=== PATIENT | male | born 1995 | race Caucasian/White ===

== ENCOUNTER 2018-02-12 23:09 | Inpatient (IN) | payer OTHER ==
[~2018-02-12] VITALS: Ht 185.4 cm; Wt 81.6 kg
[2018-02-12] MEDS ORDERED: OLANZAPINE 10 MG VIAL IM ONE (23:38)
[2018-02-13 00:01] LABS: APPEARANCE,URINE CLEAR (CLEAR); BILIRUBIN,URINE NEGATIVE (NEGATIVE); BLOOD, URINE TRACE Ery/uL (NEGATIVE); COLOR,URINE YELLOW (YELLOW); KETONES,URINE NEGATIVE (NEGATIVE); LEUKOCYTE ESTERASE ,URINE NEGATIVE (NEGATIVE); NITRITE, URINE NEGATIVE (NEGATIVE); PH,URINE 6.5 (5.0-8.0); PROTEIN,URINE NEGATIVE (NEGATIVE); UGLUCOSE NEGATIVE (NEGATIVE); UROBILINOGEN,URINE 0.2 EU/dL (0.2)
[2018-02-13 00:08] LABS: BACTERIA,URINE None seen /HPF (None Seen); RBC,URINE 0-2 /HPF (0-2); SQUAMOUS EPITHELIAL CELL,UR Few /HPF (None Seen); WBC,URINE 0-2 /HPF (0-3)
[2018-02-13] MEDS ORDERED: LORAZEPAM INJ 2 MG/ML VIAL ONE ×5 (00:19→20:45)
[2018-02-13] MEDS ORDERED: LORAZEPAM INJ 2 MG/ML VIAL IM ONE ×3 (00:30→07:00)
[2018-02-13] MEDS ORDERED: OLANZAPINE 10 MG VIAL IM ONE ×5 (01:30→13:00)
[2018-02-13 01:38] LABS: BASOPHILS % (AUTO) 0.2 % (0.0-2.0); HEMATOCRIT 43 % (39-51); HEMOGLOBIN 13.7 g/dL (13.5-17.5); LYMPHOCYTES # (AUTO) 0.7 /CMM (0.8-4.8); LYMPHOCYTES % (AUTO) 6.1 % (20.0-44.0); MEAN CORPUSCULAR HGB CONC 32 g/dl (31.0-36.0); MEAN CORPUSCULAR VOLUME 90 fL (80-96); MONOCYTES # (AUTO) 0.3 /CMM (0.1-1.30); MONOCYTES % (AUTO) 2.2 % (2.0-12.0); NEUTROPHILS # (AUTO) 11.1 /CMM (1.8-8.9); NEUTROPHILS % (AUTO) 91.5 % (43.0-81.0); PLATELET COUNT (AUTO) 202 /CMM (150-450); RDW COEFFICIENT OF VARIATION 13.5 (11.5-15.0); RED BLOOD CELL COUNT(AUTO) 4.74 MIL/uL (4.5-6.0); WHITE BLOOD COUNT (AUTO) 12.1 K/uL (4.3-11.0)
[2018-02-13 01:46] LABS: CALCIUM, SERUM 9.1 mg/dL (8.5-10.1); CARBON DIOXIDE 29 mmol/L (21-32); CHLORIDE 104 mmol/L (98-107); GLUCOSE 140 mg/dL (74-106); POTASSIUM 4.4 mmol/L (3.5-5.1); SODIUM SERUM 139 mmol/L (136-145); UREA NITROGEN, BLOOD 10 mg/dL (7-18)
[2018-02-13 01:52] LABS: ALANINE AMINOTRANSFERASE 47 U/L (12-78); ALBUMIN 4.7 g/dL (3.4-5.0); ALKALINE PHOSPHATASE 76 U/L (46-116); ASPARTATE AMINOTRANSFERASE 23 U/L (15-37); BILIRUBIN,DIRECT 0.2 mg/dL (0.0-0.2); BILIRUBIN,TOTAL 0.7 mg/dL (0.2-1.0); TOTAL PROTEIN, SERUM 7.7 g/dL (6.4-8.2)
[2018-02-13 01:53] LABS: ACETAMINOPHEN < 0 ug/ml (10-30); ALCOHOL, BLOOD 0 mg/dL (0-0); SALICYLATE 0.7 mg/dL (2.8-20.0)
[2018-02-13] MEDS ORDERED: KETAMINE HCL (500MG/10ML) 50 MG/ML VIAL ONE (07:52)
[2018-02-13] MEDS ORDERED: KETAMINE HCL(200MG/20ML) 10 MG/ML VIAL IM ONE (08:00)
[2018-02-13] MEDS ORDERED: ZIPRASIDONE MESYLATE 20 MG/VIAL VIAL IM ONE ×2 (13:22→13:30)
[2018-02-13] MEDS ORDERED: diphenhydrAMINE HCL 50 MG/ML VIAL ONE ×3 (13:22→20:45)
[2018-02-13] MEDS ORDERED: WATER FOR INJECTION,STERILE 10 ML ONE (13:23)
[2018-02-13] MEDS ORDERED: diphenhydrAMINE HCL 50 MG/ML VIAL IV ONE ×3 (13:30→20:30)
[2018-02-13] MEDS ORDERED: LORAZEPAM INJ 2 MG/ML VIAL IV ONE ×2 (16:00→20:30)
[2018-02-13] MEDS ORDERED: HALOPERIDOL LACTATE INJ 5 MG/ML VIAL ONE (18:30)
[2018-02-13] MEDS ORDERED: HALOPERIDOL LACTATE INJ 5 MG/ML VIAL IM ONE (18:30)
[2018-02-14] MEDS ORDERED: diphenhydrAMINE HCL 50 MG/ML VIAL ONE (00:58)
[2018-02-14] MEDS ORDERED: HALOPERIDOL LACTATE INJ 5 MG/ML VIAL ONE (00:59)
[2018-02-14] MEDS ORDERED: LORAZEPAM INJ 2 MG/ML VIAL ONE ×2 (00:59→03:20)
[2018-02-14] MEDS ORDERED: HALOPERIDOL LACTATE INJ 5 MG/ML VIAL IV ONE (01:00)
[2018-02-14] MEDS ORDERED: LORAZEPAM INJ 2 MG/ML VIAL IV ONE ×2 (01:00→03:30)
[2018-02-14] MEDS ORDERED: diphenhydrAMINE HCL 50 MG/ML VIAL IV ONE (01:00)
[2018-02-14] MEDS ORDERED: risperiDONE 1 MG TABLET ONE (07:26)
[2018-02-14] MEDS ORDERED: risperiDONE 0.25 MG TABLET PO ONE (07:30)
[2018-02-14] MEDS ORDERED: OLANZAPINE 5 MG/TAB.RAPDIS ONE (12:30)
[2018-02-14] MEDS ORDERED: ZIPRASIDONE MESYLATE 20 MG/VIAL VIAL IM ONE (12:30)
[2018-02-14] MEDS ORDERED: OLANZAPINE 5 MG/TAB.RAPDIS PO ONE (12:30)
[2018-02-14] MEDS ORDERED: OLAN5TAB3 PO (14:34)
[2018-02-14 16:00] VITALS: BP 142/92
[2018-02-14] MEDS ORDERED: OLANZAPINE 10 MG VIAL IM PRN (17:30)
[2018-02-14] MEDS: OLANZAPINE 5 MG TABLET PO SCH (17:45)
[2018-02-14 18:27] VITALS: BP 133/81
[2018-02-14] MEDS ORDERED: diphenhydrAMINE HCL 50 MG/ML VIAL IM STA (18:52)
[2018-02-14] MEDS ORDERED: LORAZEPAM INJ 2 MG/ML VIAL IM STA (18:52)
[2018-02-14] MEDS ORDERED: HALOPERIDOL LACTATE INJ 5 MG/ML VIAL IM ONE (19:00)
[2018-02-14 19:51] VITALS: BP 161/79
[2018-02-14 20:00] VITALS: BP 135/79
[2018-02-14 21:00] VITALS: BP 128/58
[2018-02-14] MEDS ORDERED: HALOPERIDOL LACTATE INJ 5 MG/ML VIAL IM PRN (21:30)
[2018-02-14 22:00] VITALS: BP 119/76
[2018-02-14] MEDS ORDERED: diphenhydrAMINE HCL 50 MG/ML VIAL IM PRN (22:00)
[2018-02-14] MEDS ORDERED: LORAZEPAM INJ 2 MG/ML VIAL IM PRN (22:00)
[2018-02-14 22:08] LABS: CREATINE KINASE, TOTAL 4010 U/L (39-308)
[2018-02-15] VITALS (20 sets, daily range): BP systolic 75–176; BP diastolic 23–151
[2018-02-15 04:47] LABS: BASOPHILS % (AUTO) 0.3 % (0.0-2.0); EOSINOPHILS % (AUTO) 0.8 % (0.0-6.0); HEMATOCRIT 46 % (39-51); HEMOGLOBIN 15.1 g/dL (13.5-17.5); LYMPHOCYTES # (AUTO) 2.5 /CMM (0.8-4.8); LYMPHOCYTES % (AUTO) 22.9 % (20.0-44.0); MEAN CORPUSCULAR HGB CONC 33 g/dl (31.0-36.0); MEAN CORPUSCULAR VOLUME 91 fL (80-96); MONOCYTES % (AUTO) 8.7 % (2.0-12.0); NEUTROPHILS # (AUTO) 7.5 /CMM (1.8-8.9); NEUTROPHILS % (AUTO) 67.3 % (43.0-81.0); PLATELET COUNT (AUTO) 203 /CMM (150-450); RDW COEFFICIENT OF VARIATION 13.4 (11.5-15.0); RED BLOOD CELL COUNT(AUTO) 5.11 MIL/uL (4.5-6.0); WHITE BLOOD COUNT (AUTO) 11.1 K/uL (4.3-11.0)
[2018-02-15 05:11] LABS: ALBUMIN 4.5 g/dL (3.4-5.0); BILIRUBIN,TOTAL 1.6 mg/dL (0.2-1.0); CALCIUM, SERUM 9.2 mg/dL (8.5-10.1); CREATININE 1.1 mg/dL (0.6-1.3); MAGNESIUM 2.1 mg/dL (1.8-2.4); PHOSPHORUS 5.1 mg/dL (2.5-4.9); POTASSIUM 3.8 mmol/L (3.5-5.1); TOTAL PROTEIN, SERUM 7.8 g/dL (6.4-8.2)
[2018-02-15] MEDS: OLANZAPINE 5 MG TABLET PO SCH ×3 (08:15→16:28)
[2018-02-15] MEDS: ACETAMINOPHEN 325 MG TABLET PO PRN (10:11)
[2018-02-15] MEDS ORDERED: IV NS 0.9% 1,000 ML BAG IV SCH (12:00)
[2018-02-15] MEDS ORDERED: IV NS 0.9% 1,000 ML IV PRN (12:30)
[2018-02-15] MEDS: LORAZEPAM 1 MG TABLET PO PRN ×2 (14:53→20:03)
[2018-02-15] MEDS ORDERED: OLANZAPINE 5 MG TABLET PO SCH (17:00)
[2018-02-16 00:45] VITALS: BP 143/107
[2018-02-16] MEDS: ACETAMINOPHEN 325 MG TABLET PO PRN ×3 (00:45→22:32)
[2018-02-16 01:00] VITALS: BP 143/103
[2018-02-16] MEDS: LORAZEPAM 1 MG TABLET PO PRN ×2 (03:20→20:36)
[2018-02-16 03:24] VITALS: BP 140/76
[2018-02-16 04:00] VITALS: BP 140/76
[2018-02-16 04:55] LABS: BASOPHILS % (AUTO) 0.3 % (0.0-2.0); HEMATOCRIT 45 % (39-51); LYMPHOCYTES # (AUTO) 2.2 /CMM (0.8-4.8); LYMPHOCYTES % (AUTO) 20.5 % (20.0-44.0); MEAN CORPUSCULAR HGB CONC 33 g/dl (31.0-36.0); MEAN CORPUSCULAR VOLUME 90 fL (80-96); MONOCYTES # (AUTO) 0.8 /CMM (0.1-1.30); MONOCYTES % (AUTO) 7.4 % (2.0-12.0); NEUTROPHILS # (AUTO) 7.6 /CMM (1.8-8.9); NEUTROPHILS % (AUTO) 70.8 % (43.0-81.0); PLATELET COUNT (AUTO) 200 /CMM (150-450); RDW COEFFICIENT OF VARIATION 13.2 (11.5-15.0); RED BLOOD CELL COUNT(AUTO) 4.99 MIL/uL (4.5-6.0); WHITE BLOOD COUNT (AUTO) 10.8 K/uL (4.3-11.0)
[2018-02-16 05:03] LABS: CALCIUM, SERUM 9.2 mg/dL (8.5-10.1); CREATININE 0.9 mg/dL (0.6-1.3); MAGNESIUM 2.1 mg/dL (1.8-2.4); PHOSPHORUS 3.8 mg/dL (2.5-4.9); POTASSIUM 3.5 mmol/L (3.5-5.1)
[2018-02-16 05:23] LABS: CREATINE KINASE, TOTAL 3550 U/L (39-308)
[2018-02-16] MEDS: OLANZAPINE 5 MG TABLET PO SCH ×2 (08:09→17:05)
[2018-02-17 04:00] VITALS: BP 127/81
[2018-02-17 08:00] VITALS: BP 131/82
[2018-02-17] MEDS: OLANZAPINE 5 MG TABLET PO SCH ×2 (08:29→16:43)
[2018-02-17 08:35] LABS: BASOPHILS % (AUTO) 0.3 % (0.0-2.0); EOSINOPHILS % (AUTO) 1.6 % (0.0-6.0); HEMATOCRIT 44 % (39-51); HEMOGLOBIN 14.2 g/dL (13.5-17.5); LYMPHOCYTES # (AUTO) 1.8 /CMM (0.8-4.8); LYMPHOCYTES % (AUTO) 20.2 % (20.0-44.0); MEAN CORPUSCULAR HGB CONC 32 g/dl (31.0-36.0); MEAN CORPUSCULAR VOLUME 91 fL (80-96); MONOCYTES # (AUTO) 0.7 /CMM (0.1-1.30); NEUTROPHILS # (AUTO) 6.4 /CMM (1.8-8.9); NEUTROPHILS % (AUTO) 69.9 % (43.0-81.0); PLATELET COUNT (AUTO) 198 /CMM (150-450); RDW COEFFICIENT OF VARIATION 13.1 (11.5-15.0); RED BLOOD CELL COUNT(AUTO) 4.87 MIL/uL (4.5-6.0); WHITE BLOOD COUNT (AUTO) 9.1 K/uL (4.3-11.0)
[2018-02-17 08:47] LABS: CALCIUM, SERUM 8.8 mg/dL (8.5-10.1); POTASSIUM 4.2 mmol/L (3.5-5.1)
[2018-02-17 09:32] LABS: CREATINE KINASE, TOTAL 1775 U/L (39-308)
[2018-02-17 12:00] VITALS: BP 131/82
[2018-02-17 20:00] VITALS: BP 129/84
[2018-02-18] MEDS: LORAZEPAM 1 MG TABLET PO PRN ×2 (02:26→20:26)
[2018-02-18 06:43] LABS: BASOPHILS % (AUTO) 0.4 % (0.0-2.0); HEMATOCRIT 43 % (39-51); HEMOGLOBIN 14.1 g/dL (13.5-17.5); LYMPHOCYTES # (AUTO) 2.6 /CMM (0.8-4.8); MEAN CORPUSCULAR HGB CONC 33 g/dl (31.0-36.0); MEAN CORPUSCULAR VOLUME 91 fL (80-96); MONOCYTES # (AUTO) 0.8 /CMM (0.1-1.30); MONOCYTES % (AUTO) 7.7 % (2.0-12.0); NEUTROPHILS # (AUTO) 6.8 /CMM (1.8-8.9); NEUTROPHILS % (AUTO) 64.9 % (43.0-81.0); PLATELET COUNT (AUTO) 190 /CMM (150-450); RDW COEFFICIENT OF VARIATION 13.4 (11.5-15.0); RED BLOOD CELL COUNT(AUTO) 4.68 MIL/uL (4.5-6.0); WHITE BLOOD COUNT (AUTO) 10.5 K/uL (4.3-11.0)
[2018-02-18 06:49] LABS: CALCIUM, SERUM 8.8 mg/dL (8.5-10.1); POTASSIUM 4.2 mmol/L (3.5-5.1)
[2018-02-18 07:02] LABS: CREATINE KINASE, TOTAL 884 U/L (39-308)
[2018-02-18] MEDS: OLANZAPINE 5 MG TABLET PO SCH ×2 (09:00→17:18)
[2018-02-18] MEDS: DIVALPROEX SODIUM 250 MG TABLET.DR PO SCH ×2 (14:02→20:26)
[2018-02-18 20:00] VITALS: BP 135/82
[2018-02-19] MEDS: ACETAMINOPHEN 325 MG TABLET PO PRN ×2 (01:06→18:34)
[2018-02-19] MEDS: DIVALPROEX SODIUM 250 MG TABLET.DR PO SCH ×4 (05:00→20:30)
[2018-02-19 08:00] VITALS: BP 142/77
[2018-02-19] MEDS: OLANZAPINE 5 MG TABLET PO SCH ×2 (09:08→16:59)
[2018-02-19 16:00] VITALS: BP 140/75
[2018-02-19 20:00] VITALS: BP 126/84
[2018-02-19] MEDS: LORAZEPAM 1 MG TABLET PO PRN (20:30)
[2018-02-19] MEDS ORDERED: TEMAZEPAM 15 MG CAPSULE PO PRN (21:30)
[2018-02-20] MEDS: OLANZAPINE 10 MG TABLET PO SCH ×2 (09:11→21:24)
[2018-02-20] MEDS: DIVALPROEX SODIUM 250 MG TABLET.DR PO SCH ×3 (09:22→21:24)
[2018-02-20] MEDS: ACETAMINOPHEN 325 MG TABLET PO PRN ×2 (11:47→20:08)
[2018-02-20] MEDS: FLUTICASONE/VILANTEROL 1 EACH BLST.W.DEV IH SCH (13:23)
[2018-02-20] MEDS: MUPIROCIN OINT 2% 22 GM TUBE TP SCH (13:24)
[2018-02-20] MEDS ORDERED: FLUTICASONE/SALMETEROL DISKUS IH SCH (17:00)
[2018-02-20 20:00] VITALS: BP 134/88
[2018-02-20] MEDS: LORAZEPAM 1 MG TABLET PO PRN (21:29)
[2018-02-21] MEDS: MUPIROCIN OINT 2% 22 GM TUBE TP SCH ×3 (00:10→23:50)
[2018-02-21 04:00] VITALS: BP 115/71
[2018-02-21] MEDS: DIVALPROEX SODIUM 250 MG TABLET.DR PO SCH ×3 (08:10→21:09)
[2018-02-21] MEDS: OLANZAPINE 10 MG TABLET PO SCH ×2 (08:10→21:10)
[2018-02-21] MEDS: FLUTICASONE/VILANTEROL 1 EACH BLST.W.DEV IH SCH (08:17)
[2018-02-21 12:00] VITALS: BP 121/67
[2018-02-21] MEDS: LORAZEPAM 1 MG TABLET PO PRN (18:27)
[2018-02-21 20:00] VITALS: BP 138/93
[2018-02-22 04:00] VITALS: BP 139/70
[2018-02-22 08:00] VITALS: BP 122/84
[2018-02-22] MEDS: DIVALPROEX SODIUM 250 MG TABLET.DR PO SCH (08:39)
[2018-02-22] MEDS: OLANZAPINE 10 MG TABLET PO SCH (08:39)
[2018-02-22] MEDS: FLUTICASONE/VILANTEROL 1 EACH BLST.W.DEV IH SCH (08:40)
[2018-02-22] MEDS: LORAZEPAM 1 MG TABLET PO PRN (10:49)
== END 2018-02-22 10:58 | disposition home or self-care (01) | DRG 885 ==
LOC: ER 23:10 → TELE-TD 02-14 15:44 → ICU 02-14 18:10 → TELE-TD 02-17 06:33 → MEDSG1 02-17 06:42
PROVIDERS: ADMIT Nurse Practitioner Acute Care; ATTEND Nurse Practitioner Acute Care
DX: F29 Unspecified psychosis not due to a substance or known physiological condition (principal); M62.82 Rhabdomyolysis; Z91.14 Patient's other noncompliance with medication regimen; F31.64 Bipolar disorder, current episode mixed, severe, with psychotic features; F41.9 Anxiety disorder, unspecified; G47.00 Insomnia, unspecified; D72.829 Elevated white blood cell count, unspecified; Z78.1 Physical restraint status; J45.909 Unspecified asthma, uncomplicated; F12.10 Cannabis abuse, uncomplicated; F10.10 Alcohol abuse, uncomplicated; R73.9 Hyperglycemia, unspecified
CPT/HCPCS: 36415; 70450-TC; 80048-TC; 80053-TC; 80076-TC; 80305; 81000-TC; 82550-TC; 82553-TC; 83690-TC; 83735-TC; 84100-TC; 85025-TC; 87081-TC; A4606; G0480; J1200; J1630; J2060; J3486; J3490; J7030; Z7610